=== PATIENT | female | born 2000 | race American Indian/Alaskan Native ===

== ENCOUNTER 2019-02-11 10:59 | Outpatient (CLI) | payer OTHER ==
--- NOTE | 2019-02-12 08:11 | Ultrasound Report ---
TRANSABDOMINAL AND TRANSVAGINAL PELVIC ULTRASOUND: 02/11/19 10:59:00 CLINICAL: Left pelvic pain. History of a surgically excised left ovarian cyst. History of PCOS. FINDINGS: Transabdominal and transvaginal pelvic ultrasound demonstrated a normal uterus with normal size, contour and echogenicity. The uterus measures 8.9 x 3.3 x 4.1 cm.A normal proliferative endometrium measures 7.0 mm AP thickness. Both ovaries contain numerous follicles measuring less than 1 cm. The right ovary measures 3.9 x 2.2 x 1.9cm. The left ovary measures 3.0 x 2.0 x 1.6cm. No adnexal mass. No free fluid. Normal urinary bladder. IMPRESSION: 1. Numerous bilateral ovarian follicles consistent with PCOS. 2. No mass or cyst. 3. Normal uterus.
== END 2019-02-11 11:00 | disposition home or self-care (01) ==
LOC: SPVWC 10:59
PROVIDERS: ATTEND Family Medicine
DX: R10.2 Pelvic and perineal pain (principal); N91.2 Amenorrhea, unspecified; D64.9 Anemia, unspecified
CPT/HCPCS: 76830; 76856